=== PATIENT | female | born 1980 | race Caucasian/White ===

== ENCOUNTER 2017-10-16 10:24 | Day surgery (SDC) | payer OTHER ==
[2017-10-16 11:02] LABS: CONTROL LINE UCG INT CTR LINE PRESENT; URINE PREG TEST NEGATIVE (NEGATIVE)
[2017-10-16] MEDS: LR 1,000 ML IV (11:06)
[2017-10-16] MEDS: PHYTONADIONE 10MG/ML INJECTION (J3430) As Ordered (12:49)
[2017-10-16] MEDS ORDERED: LIDOCAINE 2% INJ 100 MG/5 ML SDV (FOR ANES.) As Ordered (12:52)
[2017-10-16] MEDS ORDERED: PROPOFOL 200 MG/20 ML VIAL As Ordered (12:52)
[2017-10-16] MEDS ORDERED: MIDAZOLAM INJ 2 MG/2 ML VIAL (J2250) As Ordered (12:52)
[2017-10-16] MEDS ORDERED: ROCURONIUM BROMIDE 50 MG/5 ML VIAL As Ordered (12:52)
[2017-10-16] MEDS ORDERED: fentaNYL 250 MCG/5 ML INJECTION (J3010) As Ordered (12:52)
[2017-10-16] MEDS ORDERED: ONDANSETRON 4MG/2ML VIAL (J2405) As Ordered (13:36)
[2017-10-16] MEDS ORDERED: GLYCOPYRROLATE INJ 0.2 MG/ML 2 ML VIAL As Ordered (13:36)
[2017-10-16] MEDS ORDERED: NEOSTIGMINE 10 MG/10 ML VIAL (J2710) As Ordered (13:36)
[2017-10-16] MEDS ORDERED: KETOROLAC 60 MG/2 ML VIAL (J1885) As Ordered (13:36)
[2017-10-16] MEDS ORDERED: dexameTHASONE 4 MG/ML 1ML VIAL (J1100) As Ordered ×2 (13:36)
[2017-10-16] MEDS: TRIAMCINOLONE ACETONIDE SUSP 40 MG/ML VIAL (J3301) As Ordered (13:59)
[2017-10-16] MEDS ORDERED: LR 1,000 ML IV ×2 (14:30→14:45)
[2017-10-16] MEDS ORDERED: fentaNYL 100 MCG/2 ML INJECTION (J3010) IV (14:45)
[2017-10-16] MEDS ORDERED: ONDANSETRON 4MG/2ML VIAL (J2405) IV (14:45)
[2017-10-16] MEDS ORDERED: METOCLOPRAMIDE INJ 10MG/2ML VIAL (J2765) IV (14:45)
[2017-10-16] MEDS: PERCOCET 5MG/325MG TAB PO (15:00)
== END 2017-10-16 15:55 | disposition home or self-care (01) ==
LOC: M SDC 15:55
DX: K11.20 Sialoadenitis, unspecified (principal); K21.9 Gastro-esophageal reflux disease without esophagitis; F41.9 Anxiety disorder, unspecified; Z87.891 Personal history of nicotine dependence; Z79.899 Other long term (current) drug therapy
CPT/HCPCS: 42330

== ENCOUNTER → 2018-10-01 | Outpatient (REF) | payer OTHER ==
[~2018-10-01] MED LIST: AMIT10TA PO; CLAR1TAB2 PO; PROT1TAB2 PO
== END ==
LOC: M SFHCLERA 13:24
PROVIDERS: ATTEND Physician Assistant
DX: R10.9 Unspecified abdominal pain (principal)

== ENCOUNTER 2021-10-19 06:12 | Day surgery (SDC) | payer OTHER ==
[~2021-10-19] VITALS: Ht 160 cm; Wt 60.5 kg
[~2021-10-19 06:12] MED LIST changes: +ACETAMINOPHEN 650 MG SUPP PR ONE; -AMIT10TA PO; +AMIT10TA7 PO; +BUPIVACAINE HCL 0.25% 10ML VIAL XX ONE; +LORA-674 PO; +NS 1,000 ML IV SCH
[2021-10-19] MEDS ORDERED: INSULIN LISPRO (NovoLOG) PER UNIT SC PRN ×2 (06:35→08:35)
[2021-10-19] MEDS ORDERED: LR 1,000 ML IV SCH ×2 (06:35→08:35)
[2021-10-19] MEDS ORDERED: NS 1,000 ML IV SCH (07:00)
[2021-10-19] MEDS ORDERED: MIDAZOLAM INJ 2MG/2ML VIAL (J2250 PER 1MG) As Ordered ONE (07:03)
[2021-10-19] MEDS ORDERED: LIDOCAINE 2% 100MG/5ML SDV (FOR ANES.) As Ordered ONE (07:03)
[2021-10-19] MEDS ORDERED: propofoL 200 MG/20 ML VIAL As Ordered ONE (07:03)
[2021-10-19] MEDS ORDERED: ROCURONIUM BROMIDE 50 MG/5 ML VIAL As Ordered ONE (07:03)
[2021-10-19] MEDS ORDERED: fentaNYL 100 MCG/2 ML INJECTION As Ordered ONE (07:04)
[2021-10-19 07:14] LABS: HEMOGLOBIN 14.2 g/dl (12.0-15.5); MEAN CORPUSCULAR HEMOGLOBIN 32.5 pg (27.0-33.0); MEAN CORPUSCULAR HGB CONC 33.8 g/dl (32.0-36.5); MEAN CORPUSCULAR VOLUME 96.1 fl (80.0-96.0); PLATELET COUNT, AUTOMATED 254 10^3/uL (150-450); RED BLOOD COUNT 4.37 10^6/uL (4.00-5.40); WHITE BLOOD COUNT 6.4 10^3/uL (4.0-10.0)
[2021-10-19] MEDS ORDERED: ACETAMINOPHEN 650 MG SUPP As Ordered ONE (07:20)
[2021-10-19] MEDS ORDERED: BUPIVACAINE HCL 0.5% 30ML VIAL As Ordered ONE (07:21)
[2021-10-19 07:45] LABS: BLOOD UREA NITROGEN 12 MG/DL (7-18); CALCIUM LEVEL 10.2 MG/DL (8.5-10.1); CARBON DIOXIDE LEVEL 30 MEQ/L (21-32); CHLORIDE LEVEL 111 MEQ/L (98-107); CREATININE FOR GFR 0.72 MG/DL (0.55-1.30); GLOMERULAR FILTRATION RATE > 60.0 (>60); GLUCOSE, FASTING 95 MG/DL (70-100); HCG, SERUM QUANTITATIVE < 1.0 MIU/ML; POTASSIUM SERUM 4.4 MEQ/L (3.5-5.1); SODIUM LEVEL 143 MEQ/L (136-145)
[2021-10-19] MEDS ORDERED: dexameTHASONE 4 MG/ML 1ML VIAL (J1100 PER 1MG) As Ordered ONE (07:45)
[2021-10-19] MEDS ORDERED: ONDANSETRON 4MG/2ML VIAL As Ordered ONE (07:58)
[2021-10-19] MEDS ORDERED: KETOROLAC 60MG 2ML VIAL As Ordered ONE (07:58)
[2021-10-19] MEDS ORDERED: METOCLOPRAMIDE INJ 10MG/2ML VIAL (J2765 PER 1) As Ordered ONE (07:59)
[2021-10-19] MEDS ORDERED: ACETAMINOPHEN 1000MG 100ML IV BTL (OFIRMEV) (J0131 PER 10MG) As Ordered ONE (07:59)
[2021-10-19] MEDS ORDERED: SUGAMMADEX SODIUM 500 MG/5 ML VIAL (BRIDION) As Ordered ONE (08:00)
[2021-10-19] MEDS ORDERED: ONDANSETRON 4MG/2ML VIAL IV PRN (08:35)
[2021-10-19] MEDS ORDERED: fentaNYL 100 MCG/2 ML INJECTION IV PRN (08:35)
[2021-10-19] MEDS ORDERED: MORPHINE 2 MG/ML 1ML VIAL IV PRN (08:35)
[2021-10-19] MEDS ORDERED: oxyCODONE 5MG TAB PO PRN (08:35)
[2021-10-19 09:30] VITALS: BP 103/61
[2021-10-19] MEDS ORDERED: KETOROLAC 30 MG/ML 1ML VIAL IV SCH (14:00)
== END 2021-10-19 09:47 | disposition home or self-care (01) ==
LOC: M SDC 06:12
PROVIDERS: ATTEND Obstetrics & Gynecology
DX: Z30.2 Encounter for sterilization (principal); K21.9 Gastro-esophageal reflux disease without esophagitis; F41.9 Anxiety disorder, unspecified; Z79.899 Other long term (current) drug therapy; F17.210 Nicotine dependence, cigarettes, uncomplicated
CPT/HCPCS: 36415; 58661; 80048; 84702; 85027; 88302; J1100; J1885; J2250; J2405; J2765; J3010